=== PATIENT | female | born 1985 | race Two or more races ===

== ENCOUNTER 2017-11-10 15:13 | Emergency (ER) | payer BC ==
[2017-11-10] MEDS ORDERED: SODIUM CHLORIDE 0.9% 1,000 ML IV STA (15:49)
[2017-11-10] MEDS ORDERED: FAMOTIDINE 20 MG/2 ML VIAL IV STA (15:49)
[2017-11-10 16:15] LABS: Basophils % (A) 0 %; Eosinophils # (A) 0.1 k/uL (0-0.7); Eosinophils % (A) 1 %; HCT 38.8 % (34.0-46.0); HGB 13.2 gm/dL (11.4-16.0); Lymphocytes # (A) 1.4 k/uL (1.0-4.8); Lymphocytes % (A) 13 %; MCH 29.7 pg (25.0-35.0); MCV 87.1 fL (80.0-100.0); Mean Platelet Volume 9.7; Monocytes # (A) 0.3 k/uL (0-1.0); Monocytes % (A) 3 %; Neutrophils # (A) 8.9 k/uL (1.3-7.7); Neutrophils % (A) 82 %; Platelet Count 209 k/uL (150-450); RBC 4.45 m/uL (3.80-5.40); RDW 12.6 % (11.5-15.5); WBC 10.8 k/uL (3.8-10.6)
[2017-11-10 16:18] LABS: Appearance,Urine Clear (Clear); Bilirubin,Urine Negative (Negative); Blood,Urine Negative (Negative); Color,Urine Light Yellow; Glucose,Urine (UA) Negative (Negative); Ketones,Urine Negative (Negative); Leukocyte Esterase,Urine Negative (Negative); Nitrite,Urine Negative (Negative); Protein,Urine Negative (Negative); Specific Gravity,Urine 1.004 (1.001-1.035); Urobilinogen,Urine <2.0 mg/dL (<2.0)
[2017-11-10 16:27] LABS: ALT 52 U/L (9-52); AST 75 U/L (14-36); Albumin 4.2 g/dL (3.5-5.0); Alkaline Phosphatase 120 U/L (38-126); Amylase 93 U/L (30-110); Anion Gap 12 mmol/L; Blood Urea Nitrogen 10 mg/dL (7-17); Calcium 9.7 mg/dL (8.4-10.2); Carbon Dioxide 23 mmol/L (22-30); Chloride 102 mmol/L (98-107); Glucose 91 mg/dL (74-99); Lipase 88 U/L (23-300); Potassium 3.5 mmol/L (3.5-5.1); Sodium 137 mmol/L (137-145); Total Bilirubin 0.7 mg/dL (0.2-1.3); Total Protein 7.8 g/dL (6.3-8.2)
--- NOTE | 2017-11-10 16:36 | ED ---
Abdominal Pain HPI - General Chief Complaint: Abdominal Pain Stated Complaint: Abd pain Time Seen by Provider: 11/10/17 15:39 Source: patient, RN notes reviewed Mode of arrival: ambulatory Limitations: no limitations - History of Present Illness Initial Comments: This a 32-year-old female presents emergency department to complaint of abdominal pain. Patient states she's had on-and-off) epigastric pain for several years and told that is related to her gallbladder. She states she had PARTIALLY 5 YEARS AGO WHICH SHOWED SLUDGE. SHE STATES HER LAST COUPLE DAYS SHE' S HAD INCREASING PAIN IS WORSE WHEN SHE EATS. SHE STATES THAT SHE IS NOT HAVING ANY DIARRHEA SHE STATES SHE HAS SHE FEELS CONSTIPATED. PATIENT ALSO STATES THAT SHE IS CURRENTLY 10 WEEKS SCHEDULED SEE her SHELLS INSPECTOR later this month. She is A0 and having no current complications. Denies any lower abdominal pain denies any vaginal bleeding or vaginal discharge. Denies any dysuria no flank pain. - Related Data Home Medications Medication Instructions Recorded Confirmed Docusate [Colace] 100 mg PO DAILY PRN 11/10/17 11/10/17 Omeprazole 20 mg PO DAILY 11/10/17 11/10/17 Pnv No.95/Ferrous Fum/Folic AC 1 tab PO DAILY 11/10/17 11/10/17 [ Multivitamin Tablet] Allergies Allergy/AdvReac Type Severity Reaction Status Date / Time No Known Allergies Allergy Verified 11/10/17 15:59 Review of Systems ROS Statement: Those systems with pertinent positive or pertinent negative responses have been documented in the HPI. ROS Other: All systems not noted in ROS Statement are negative. Past Medical History Past Medical History: GERD/Reflux History of Any Multi-Drug Resistant Organisms: None Reported Past Surgical History: No Surgical Hx Reported Past Psychological History: No Psychological Hx Reported Smoking Status: Never smoker Past Alcohol Use History: None Reported Past Drug Use History: None Reported General Exam Limitations: no limitations General appearance: alert, in no apparent distress Respiratory exam: Present: normal lung sounds bilaterally. Absent: respiratory distress, wheezes, rales, rhonchi, stridor Cardiovascular Exam: Present: regular rate, normal rhythm, normal heart sounds. Absent: systolic murmur, diastolic murmur, rubs, gallop, clicks GI/Abdominal exam: Present: soft, tenderness (Mild tenderness right upper quadrant, epigastric region), normal bowel sounds. Absent: distended, guarding , rebound, rigid Back exam: Absent: CVA tenderness (R), CVA tenderness (L) Skin exam: Present: warm, dry, intact, normal color. Absent: rash Course Vital Signs 11/10/17 15:20 Temperature 98.2 F Pulse Rate 99 Respiratory 18 Rate Blood Pressure 129/85 O2 Sat by Pulse 100 Oximetry Medical Decision Making - Medical Decision Making 32-year-old female presents emergency department for reported abdominal pain. Patient's ultrasound does show multiple stones consistent with cholelithiasis. Patient's laboratory unremarkable. Patient has a normal viable IUP 11 weeks. Patient with follow-up with her SHELLS INSPECTOR. Patient was given on-call surgery was explained to her that she is Likely be any surgery at this time. Patient is advised to avoid any fatty foods - Lab Data Result diagrams: 11/10/17 16:04 11/10/17 16:04 Lab Results 11/10/17 11/10/17 11/10/17 Range/Units 16:04 16:04 16:04 WBC 10.8 H (3.8-10.6) k/uL RBC 4.45 (3.80-5.40) m/uL Hgb 13.2 (11.4-16.0) gm/dL Hct 38.8 (34.0-46.0) % MCV 87.1 (80.0-100.0) fL MCH 29.7 (25.0-35.0) pg MCHC 34.0 (31.0-37.0) g/dL RDW 12.6 (11.5-15.5) % Plt Count 209 (150-450) k/uL Neutrophils % 82 % Lymphocytes % 13 % Monocytes % 3 % Eosinophils % 1 % Basophils % 0 % Neutrophils # 8.9 H (1.3-7.7) k/uL Lymphocytes # 1.4 (1.0-4.8) k/uL Monocytes # 0.3 (0-1.0) k/uL Eosinophils # 0.1 (0-0.7) k/uL Basophils # 0.0 (0-0.2) k/uL Sodium 137 (137-145) mmol/L Potassium 3.5 (3.5-5.1) mmol/L Chloride 102 (98-107) mmol/L Carbon Dioxide 23 (22-30) mmol/L Anion Gap 12 mmol/L BUN 10 (7-17) mg/dL Creatinine 0.56 (0.52-1.04) mg/dL Est GFR (MDRD) Af Amer >60 (>60 ml/min/1.73 sqM) Est GFR (MDRD) Non-Af >60 (>60 ml/min/1.73 sqM) Glucose 91 (74-99) mg/dL Calcium 9.7 (8.4-10.2) mg/dL Total Bilirubin 0.7 (0.2-1.3) mg/dL AST 75 H (14-36) U/L ALT 52 (9-52) U/L Alkaline Phosphatase 120 (38-126) U/L Total Protein 7.8 (6.3-8.2) g/dL Albumin 4.2 (3.5-5.0) g/dL Amylase 93 (30-110) U/L Lipase 88 (23-300) U/L Urine Color Light Yellow Urine Appearance Clear (Clear) Urine pH 6.0 (5.0-8.0) Ur Specific [place] 1.004 (1.001-1.035) Urine Protein Negative (Negative) Urine Glucose (UA) Negative (Negative) Urine Ketones Negative (Negative) Urine Blood Negative (Negative) Urine Nitrite Negative (Negative) Urine Bilirubin Negative (Negative) Urine Urobilinogen <2.0 (<2.0) mg/dL Ur Leukocyte Esterase Negative (Negative) Disposition Clinical Impression: Cholelithiasis, Abdominal pain, Disposition: HOME SELF-CARE Condition: Stable Instructions: Gallstones (ED) Additional Instructions: Please return to the Emergency Department if symptoms worsen or any other concerns. Referrals: Luke Song MD [Primary Care Provider] - 1-2 days Jose David Castellano DO [Doctor of Osteopathic Medicine] - 1-2 days Time of Disposition: 17:22
--- NOTE | 2017-11-10 16:57 | US ---
EXAMINATION TYPE: US abdomen limited DATE OF EXAM: 11/10/2017 COMPARISON: NONE CLINICAL HISTORY: Epigastric Pain. EXAM MEASUREMENTS: Liver Length: 12.8 cm Gallbladder Wall: 0.2 cm CBD: 0.4 cm Right Kidney: 10.3 x 5.0 x 5.0 cm Pancreas: Obscured by bowel gas Liver: Somewhat coarse echotexture is present. Gallbladder: Multiple echogenic foci visualized, there is associated shadowing, no gallbladder wall thickening or pericholecystic fluid Evidence for sonographic Dominguez's sign: Yes CBD: wnl Right Kidney: No hydronephrosis or masses seen and cortical medullary differentiation is maintained No ascites IMPRESSION: There may be underlying hepatocellular disease, hepatic steatosis, there is cholelithiasi s. Limited exam.
--- NOTE | 2017-11-10 17:08 | US ---
EXAMINATION TYPE: US OB <= 14 wk fetus DATE OF EXAM: 11/10/2017 COMPARISON: NONE CLINICAL HISTORY: Pain. EXAM PERFORMED: Transabdominal (TA) EXAM MEASUREMENTS: GESTATIONAL AGE / DATING Physician Established: (10 weeks/4 days) EDC: 06/04/2018 Dates by LMP: (10 weeks/4 days) EDC: 06/04/2018 Dates by First Scan: No previous this is first scan Dates by Current Scan for: (11 weeks/0 days) EDC: 06/01/2018 MATERNAL ANATOMY Uterus: 11.1 x 7.4 x 7.3 cm Right Ovary: 3.4 x 2.9 x 2.6 cm Left Ovary: Not visualized on this exam Post CDS / Adnexa: wnl Presence of free fluid: No Presence of corpus luteal cyst: Yes, right ovary measuring 2.2 x 2.0 x 1.8 cm Presence of subchorionic bleed: No GESTATION / SURVEY CRL: 4.1 cm (11 weeks/0 days) Yolk Sac (normal less than 6mm): 4.5 mm Heart Rate: 165 bpm Rhythm: Normal IUP: Viable IUP Date of LMP: 08/28/2017 Beta HcG (if available): Not available at this time Viable IUP, measurements consistent with dates. Probable corpus luteal cyst visualized right ovary me asuring 2.2 x 2.0 x 1.8 cm IMPRESSION: Single viable intrauterine corresponding to ultrasound age of 11 weeks 0 days with estimate d date of delivery 06/01/2018, limited survey
[2017-11-10 17:41] LABS: HCG,Quantitative Serum 91189.2 mIU/mL
[2017-11-10 17:49] VITALS: BP 139/73; PULSE 105; RESP 20; TEMP 97.9
== END 2017-11-10 17:55 | disposition home or self-care (01) ==
LOC: EC 15:13
DX: O99.611 Diseases of the digestive system complicating pregnancy, first trimester (principal); K80.20 Calculus of gallbladder without cholecystitis without obstruction; K21.9 Gastro-esophageal reflux disease without esophagitis; Z3A.11 11 weeks gestation of pregnancy; Z79.899 Other long term (current) drug therapy
CPT/HCPCS: 36415; 76705; 76801; 80053; 81003; 82150; 83690; 84702; 85025; 96361; 96374; 99284

== ENCOUNTER 2017-11-11 17:29 | Inpatient (IN) | payer BC ==
[2017-11-11 18:52] LABS: Basophils % (A) 0 %; Eosinophils # (A) 0.1 k/uL (0-0.7); Eosinophils % (A) 1 %; HCT 38.7 % (34.0-46.0); HGB 12.9 gm/dL (11.4-16.0); Lymphocytes # (A) 1.2 k/uL (1.0-4.8); Lymphocytes % (A) 14 %; MCH 29.3 pg (25.0-35.0); MCHC 33.2 g/dL (31.0-37.0); MCV 88.4 fL (80.0-100.0); Mean Platelet Volume 9.6; Monocytes # (A) 0.3 k/uL (0-1.0); Monocytes % (A) 3 %; Neutrophils # (A) 6.9 k/uL (1.3-7.7); Neutrophils % (A) 81 %; Platelet Count 200 k/uL (150-450); RBC 4.39 m/uL (3.80-5.40); RDW 12.6 % (11.5-15.5); WBC 8.4 k/uL (3.8-10.6)
[2017-11-11 18:58] LABS: Appearance,Urine Clear (Clear); Bilirubin,Urine Negative (Negative); Blood,Urine Negative (Negative); Color,Urine Yellow; Glucose,Urine (UA) Negative (Negative); Ketones,Urine Negative (Negative); Nitrite,Urine Negative (Negative); Protein,Urine Negative (Negative); Specific Gravity,Urine 1.006 (1.001-1.035); Urobilinogen,Urine <2.0 mg/dL (<2.0)
[2017-11-11 18:59] LABS: Leukocyte Esterase,Urine Negative (Negative)
[2017-11-11 19:03] LABS: ALT 178 U/L (9-52); AST 186 U/L (14-36); Albumin 4.1 g/dL (3.5-5.0); Alkaline Phosphatase 192 U/L (38-126); Anion Gap 10 mmol/L; Blood Urea Nitrogen 8 mg/dL (7-17); Calcium 9.7 mg/dL (8.4-10.2); Carbon Dioxide 23 mmol/L (22-30); Chloride 104 mmol/L (98-107); Glucose 86 mg/dL (74-99); Potassium 3.8 mmol/L (3.5-5.1); Sodium 137 mmol/L (137-145); Total Bilirubin 2.3 mg/dL (0.2-1.3); Total Protein 7.9 g/dL (6.3-8.2)
--- NOTE | 2017-11-11 19:13 | ED ---
General Adult HPI - General Chief complaint: Abdominal Pain Stated complaint: Bladder pain/ 10 weeks Time Seen by Provider: 11/11/17 18:18 Source: patient, RN notes reviewed, old records reviewed Mode of arrival: ambulatory Limitations: no limitations - History of Present Illness Initial comments: 32-year-old female presenting with epigastric pain. Patient was seen in the emergency department yesterday for similar pain. She was noted to have stones at that time. She has history of gallstones. Pain is been present for the past 6 days. Denies fever. Has had some nausea associated with this as well. Pain is constant in nature at this time. She is currently 11 weeks . Denies any lower abdominal pain. Denies any vaginal bleeding or vaginal discharge. - Related Data Home Medications Medication Instructions Recorded Confirmed Docusate [Colace] 100 mg PO DAILY PRN 11/10/17 11/11/17 Omeprazole 20 mg PO DAILY 11/10/17 11/11/17 Pnv No.95/Ferrous Fum/Folic AC 1 tab PO DAILY 11/10/17 11/11/17 [ Multivitamin Tablet] Acetaminophen [Tylenol Extra 1,000 mg PO Q6H PRN 11/11/17 11/11/17 Strength] Calcium Carbonate [Tums] 500 mg PO TID PRN 11/11/17 11/11/17 Famotidine [Pepcid] 20 mg PO BID 11/11/17 11/11/17 Allergies Allergy/AdvReac Type Severity Reaction Status Date / Time No Known Allergies Allergy Verified 11/11/17 18:37 Review of Systems ROS Statement: Those systems with pertinent positive or pertinent negative responses have been documented in the HPI. ROS Other: All systems not noted in ROS Statement are negative. Past Medical History Past Medical History: GERD/Reflux History of Any Multi-Drug Resistant Organisms: None Reported Past Surgical History: No Surgical Hx Reported Past Psychological History: No Psychological Hx Reported Smoking Status: Never smoker Past Alcohol Use History: None Reported Past Drug Use History: None Reported General Exam Limitations: no limitations General appearance: alert, in no apparent distress Head exam: Present: atraumatic, normocephalic Eye exam: Present: normal appearance, PERRL ENT exam: Present: normal exam Neck exam: Present: normal inspection. Absent: tenderness, meningismus Respiratory exam: Present: normal lung sounds bilaterally. Absent: respiratory distress, wheezes Cardiovascular Exam: Present: regular rate, normal rhythm GI/Abdominal exam: Present: soft, tenderness (Mild epigastric tenderness palpation.). Absent: distended Extremities exam: Present: normal inspection, normal capillary refill. Absent: pedal edema Back exam: Present: normal inspection, full ROM Neurological exam: Present: alert, oriented X3, CN II-XII intact. Absent: motor sensory deficit Psychiatric exam: Present: normal affect, normal mood Skin exam: Present: warm, dry, intact. Absent: cyanosis, diaphoretic Course Vital Signs 11/11/17 11/11/17 17:33 19:52 Temperature 98.0 F Pulse Rate 85 72 Respiratory 20 18 Rate Blood Pressure 123/85 118/82 O2 Sat by Pulse 99 100 Oximetry Medical Decision Making - Medical Decision Making 32-year-old female presenting with epigastric and right upper quadrant pain. Patient's had this pain for approximately one week. She is currently 11 weeks . . No lower abdominal pain, no vaginal bleeding. Patient has not yet followed with NEGATIVE RETOUCHER. Laboratory studies reveal elevated serum lipase 11,900 from 88 yesterday, amylase elevated 638, total bili 2.3, AST ALT and alk phos are also mildly elevated. Ultrasound shows mild gallbladder wall thickening, positive Dominguez sign. Common bile duct within normal limits, there is cholelithiasis present. Patient will be admitted, case discussed with Dr. Snell, he accepts admission, GI will be placed on consult. Diagnosis: Gallstone pancreatitis - Lab Data Result diagrams: 11/11/17 18:39 11/11/17 18:39 Lab Results 11/11/17 11/11/17 11/11/17 Range/Units 18:39 18:39 18:39 WBC 8.4 (3.8-10.6) k/uL RBC 4.39 (3.80-5.40) m/uL Hgb 12.9 (11.4-16.0) gm/dL Hct 38.7 (34.0-46.0) % MCV 88.4 (80.0-100.0) fL MCH 29.3 (25.0-35.0) pg MCHC 33.2 (31.0-37.0) g/dL RDW 12.6 (11.5-15.5) % Plt Count 200 (150-450) k/uL Neutrophils % 81 % Lymphocytes % 14 % Monocytes % 3 % Eosinophils % 1 % Basophils % 0 % Neutrophils # 6.9 (1.3-7.7) k/uL Lymphocytes # 1.2 (1.0-4.8) k/uL Monocytes # 0.3 (0-1.0) k/uL Eosinophils # 0.1 (0-0.7) k/uL Basophils # 0.0 (0-0.2) k/uL PT (9.0-12.0) sec INR (<1.2) APTT (22.0-30.0) sec Sodium 137 (137-145) mmol/L Potassium 3.8 (3.5-5.1) mmol/L Chloride 104 (98-107) mmol/L Carbon Dioxide 23 (22-30) mmol/L Anion Gap 10 mmol/L BUN 8 (7-17) mg/dL Creatinine 0.60 (0.52-1.04) mg/dL Est GFR (MDRD) Af Amer >60 (>60 ml/min/1.73 sqM) Est GFR (MDRD) Non-Af >60 (>60 ml/min/1.73 sqM) Glucose 86 (74-99) mg/dL Plasma Lactic Acid [place] 0.9 (0.7-2.0) mmol/L Calcium 9.7 (8.4-10.2) mg/dL Total Bilirubin 2.3 H (0.2-1.3) mg/dL AST 186 H (14-36) U/L ALT 178 H (9-52) U/L Alkaline Phosphatase 192 H (38-126) U/L Total Protein 7.9 (6.3-8.2) g/dL Albumin 4.1 (3.5-5.0) g/dL Amylase 638 H* (30-110) U/L Lipase 15961 H (23-300) U/L Urine Color Urine Appearance (Clear) Urine pH (5.0-8.0) Ur Specific [place] (1.001-1.035) Urine Protein (Negative) Urine Glucose (UA) (Negative) Urine Ketones (Negative) Urine Blood (Negative) Urine Nitrite (Negative) Urine Bilirubin (Negative) Urine Urobilinogen (<2.0) mg/dL Ur Leukocyte Esterase (Negative) Urine HCG, Qual (Not Detectd) Blood Type Blood Type Recheck Antibody Screen Spec Expiration Date 11/11/17 11/11/17 11/11/17 Range/Units 18:39 18:39 18:39 WBC (3.8-10.6) k/uL RBC (3.80-5.40) m/uL Hgb (11.4-16.0) gm/dL Hct (34.0-46.0) % MCV (80.0-100.0) fL MCH (25.0-35.0) pg MCHC (31.0-37.0) g/dL RDW (11.5-15.5) % Plt Count (150-450) k/uL Neutrophils % % Lymphocytes % % Monocytes % % Eosinophils % % Basophils % % Neutrophils # (1.3-7.7) k/uL Lymphocytes # (1.0-4.8) k/uL Monocytes # (0-1.0) k/uL Eosinophils # (0-0.7) k/uL Basophils # (0-0.2) k/uL PT 10.0 (9.0-12.0) sec INR 1.0 (<1.2) APTT 24.0 (22.0-30.0) sec Sodium (137-145) mmol/L Potassium (3.5-5.1) mmol/L Chloride (98-107) mmol/L Carbon Dioxide (22-30) mmol/L Anion Gap mmol/L BUN (7-17) mg/dL Creatinine (0.52-1.04) mg/dL Est GFR (MDRD) Af Amer (>60 ml/min/1.73 sqM) Est GFR (MDRD) Non-Af (>60 ml/min/1.73 sqM) Glucose (74-99) mg/dL Plasma Lactic Acid [place] (0.7-2.0) mmol/L Calcium (8.4-10.2) mg/dL Total Bilirubin (0.2-1.3) mg/dL AST (14-36) U/L ALT (9-52) U/L Alkaline Phosphatase (38-126) U/L Total Protein (6.3-8.2) g/dL Albumin (3.5-5.0) g/dL Amylase (30-110) U/L Lipase (23-300) U/L Urine Color Yellow Urine Appearance Clear (Clear) Urine pH 5.0 (5.0-8.0) Ur Specific [place] 1.006 (1.001-1.035) Urine Protein Negative (Negative) Urine Glucose (UA) Negative (Negative) Urine Ketones Negative (Negative) Urine Blood Negative (Negative) Urine Nitrite Negative (Negative) Urine Bilirubin Negative (Negative) Urine Urobilinogen <2.0 (<2.0) mg/dL Ur Leukocyte Esterase Negative (Negative) Urine HCG, Qual (Not Detectd) Blood Type O Positive Blood Type Recheck No Antibody Screen NEGATIVE Spec Expiration Date 11/14/2017 - 233811/11/17 Range/Units 18:39 WBC (3.8-10.6) k/uL RBC (3.80-5.40) m/uL Hgb (11.4-16.0) gm/dL Hct (34.0-46.0) % MCV (80.0-100.0) fL MCH (25.0-35.0) pg MCHC (31.0-37.0) g/dL RDW (11.5-15.5) % Plt Count (150-450) k/uL Neutrophils % % Lymphocytes % % Monocytes % % Eosinophils % % Basophils % % Neutrophils # (1.3-7.7) k/uL Lymphocytes # (1.0-4.8) k/uL Monocytes # (0-1.0) k/uL Eosinophils # (0-0.7) k/uL Basophils # (0-0.2) k/uL PT (9.0-12.0) sec INR (<1.2) APTT (22.0-30.0) sec Sodium (137-145) mmol/L Potassium (3.5-5.1) mmol/L Chloride (98-107) mmol/L Carbon Dioxide (22-30) mmol/L Anion Gap mmol/L BUN (7-17) mg/dL Creatinine (0.52-1.04) mg/dL Est GFR (MDRD) Af Amer (>60 ml/min/1.73 sqM) Est GFR (MDRD) Non-Af (>60 ml/min/1.73 sqM) Glucose (74-99) mg/dL Plasma Lactic Acid [place] (0.7-2.0) mmol/L Calcium (8.4-10.2) mg/dL Total Bilirubin (0.2-1.3) mg/dL AST (14-36) U/L ALT (9-52) U/L Alkaline Phosphatase (38-126) U/L Total Protein (6.3-8.2) g/dL Albumin (3.5-5.0) g/dL Amylase (30-110) U/L Lipase (23-300) U/L Urine Color Urine Appearance (Clear) Urine pH (5.0-8.0) Ur Specific [place] (1.001-1.035) Urine Protein (Negative) Urine Glucose (UA) (Negative) Urine Ketones (Negative) Urine Blood (Negative) Urine Nitrite (Negative) Urine Bilirubin (Negative) Urine Urobilinogen (<2.0) mg/dL Ur Leukocyte Esterase (Negative) Urine HCG, Qual Detected (Not Detectd) Blood Type Blood Type Recheck Antibody Screen Spec Expiration Date Disposition Clinical Impression: Gallstone pancreatitis Disposition: ADMITTED IP TO THIS [facility] Condition: Stable Referrals: Luke Song MD [Primary Care Provider] - 1-2 days Decision to Admit Reason: Admit from EC Decision Date: 11/11/17 Decision Time: 20:54
[2017-11-11 19:18] LABS: Amylase 638 U/L (30-110)
[2017-11-11 19:33] LABS: Lipase 11900 U/L (23-300)
--- NOTE | 2017-11-11 19:36 | US ---
EXAMINATION TYPE: US gallbladder DATE OF EXAM: 11/11/2017 COMPARISON: US 11/10/2017 CLINICAL HISTORY: Pain. EXAM MEASUREMENTS: Liver Length: 12.4 cm Gallbladder Wall: 0.29 cm CBD: 0.5 cm Right Kidney: 10.4 x 4.7 x 4.4 cm there is a hypodense focus within the interpolar cortex of the rig ht kidney which measures 1.3 cm, this could be a cyst. Pancreas: Obscured by bowel gas Liver: Somewhat coarsened echotexture unchanged. Gallbladder: Multiple echogenic foci visualized. These layer dependently within the lumen of the gal lbladder. Gallbladder wall is borderline thickened however there is no pericholecystic fluid and the common duct is within normal limits. Evidence for sonographic Dominguez's sign: Yes CBD: wnl as visualized, distal portion is obscured by bowel gas Right Kidney: No hydronephrosis or masses seen IMPRESSION: Cholelithiasis is again noted. There is clinical concern for acute cholecystitis HIDA sca n could be obtained.
[2017-11-11] MEDS ORDERED: HYDROmorphone 2 MG/ML 1 ML SYRINGE IVP PRN (20:47)
[2017-11-11] MEDS ORDERED: ONDANSETRON 4 MG/2 ML VIAL IVP PRN (20:47)
[2017-11-11] MEDS ORDERED: NALOXONE 0.4 MG/ML 1 ML VIAL IV PRN (20:47)
[2017-11-11] MEDS: DEXTROSE 5%-0.45% NACL 1,000 ML IV SCH (21:20)
[2017-11-11 21:58] VITALS: BMI 37.9
[2017-11-11] MEDS: ACETAMINOPHEN IV (For NPO) 1,000 MG in EMPTY BAG 1 BAG IVPB SCH (23:23)
[2017-11-12] MEDS: ACETAMINOPHEN IV (For NPO) 1,000 MG in EMPTY BAG 1 BAG IVPB SCH ×3 (05:19→17:25)
[2017-11-12 07:54] LABS: Albumin 3.4 g/dL (3.5-5.0); Amylase 298 U/L (30-110); Anion Gap 8 mmol/L; Calcium 9.1 mg/dL (8.4-10.2); Carbon Dioxide 23 mmol/L (22-30); Chloride 107 mmol/L (98-107); Glucose 95 mg/dL (74-99); Lipase 1058 U/L (23-300); Sodium 138 mmol/L (137-145); Total Bilirubin 0.8 mg/dL (0.2-1.3); Total Protein 6.6 g/dL (6.3-8.2)
[2017-11-12 07:59] LABS: ALT 166 U/L (9-52); AST 150 U/L (14-36); Alkaline Phosphatase 174 U/L (38-126); Blood Urea Nitrogen 6 mg/dL (7-17); Potassium 4.2 mmol/L (3.5-5.1)
[2017-11-12 08:02] LABS: Basophils % (A) 0 %; Eosinophils # (A) 0.1 k/uL (0-0.7); Eosinophils % (A) 1 %; HCT 35.9 % (34.0-46.0); HGB 11.8 gm/dL (11.4-16.0); Lymphocytes # (A) 1.5 k/uL (1.0-4.8); Lymphocytes % (A) 22 %; MCH 29.5 pg (25.0-35.0); MCHC 32.9 g/dL (31.0-37.0); MCV 89.8 fL (80.0-100.0); Mean Platelet Volume 9.9; Monocytes # (A) 0.3 k/uL (0-1.0); Monocytes % (A) 4 %; Neutrophils # (A) 4.9 k/uL (1.3-7.7); Neutrophils % (A) 71 %; Platelet Count 182 k/uL (150-450); RDW 12.9 % (11.5-15.5); WBC 6.9 k/uL (3.8-10.6)
[2017-11-12] MEDS: DEXTROSE 5%-0.45% NACL 1,000 ML IV SCH ×2 (08:58→17:24)
--- NOTE | 2017-11-12 09:58 | CONS ---
CONSULTATION DATE OF CONSULTATION: 11/12/17 REQUESTING PHYSICIAN: Dr. Snell. REASON FOR CONSULTATION: Acute gallstone pancreatitis. HISTORY OF PRESENT ILLNESS: The patient is a 32-year-old pleasant white female admitted to the hospital with epigastric pain for the last 6 days duration. She had a similar episode that lasted for 2 or 3 hours about a year ago and was diagnosed with gallbladder sludge at that time. However, this time the pain has been constant, severe in the epigastric area associated with some nausea but no emesis. The pain continued to progressively get worse. She is presently 10 weeks . She went to the emergency room on November 10 and was discharged home and then she came back yesterday with worsening symptoms and admitted to the hospital for further evaluation. She was noted to have acute elevation of amylase and lipase consistent with pancreatitis. Amylase was 638 and lipase was 11,900. This morning she is feeling better. Abdominal pain has improved. No further episodes of nausea, vomiting. No fever, chills, night sweats. PAST MEDICAL HISTORY: Unremarkable. Past surgical history unremarkable. MEDICATIONS: At home, vitamins, omeprazole, Colace, extra-strength Tylenol. ALLERGIES: No known drug allergies. SOCIAL HISTORY: No smoking, alcohol use. FAMILY HISTORY: Unremarkable. REVIEW OF SYSTEMS: Cardiopulmonary: No chest pain, shortness of breath. Musculoskeletal: Unremarkable. ENT: Vision unremarkable. SKIN: Unremarkable. Psychiatric: Unremarkable. Neurological: Unremarkable. Constitutional: No recent weight loss. No fever, chills, night sweats. PHYSICAL EXAMINATION: She appears comfortable. No apparent distress. VITAL SIGNS: Stable. Blood pressure is 126/85, pulse 86, temperature 97.4. HEENT examination unremarkable. Conjunctivae pink. Sclerae anicteric. Oral cavity no lesions. Neck: No jugular venous distention or lymph node enlargement. Chest was clear to auscultation. HEART: Regular rate and rhythm. ABDOMEN: Soft. Mild tenderness in the epigastric area. Bowel sounds are positive. No organomegaly. Extremities no pedal edema. Skin no rashes. NEUROLOGIC: Alert and oriented x3. No focal deficits. LAB: WBC 6.9, hemoglobin 11.8, platelets are normal. AST was 186, ALT 178, T-bilirubin 2.3, and alkaline phosphatase 192. Today, T-bilirubin is down to 0.8. AST is down to 150, ALT is down to 166, alkaline phosphatase is 174. Amylase was 638 yesterday and today is 298, lipase was 11,900 and today is 1058. Ultrasound showed multiple gallstones and no biliary ductal dilation. IMPRESSION: 1. Acute gallstone pancreatitis in this patient who presents with epigastric discomfort for the last 6 days duration noted to have elevated amylase and lipase as well as elevated LFTs and bilirubin up to 2.3. This morning her labs have significantly improved indicating most likely that she had passed the CBD stone spontaneously. Clinically, she has much less symptoms today. 2. 10 weeks gestation. RECOMMENDATIONS: I had a lengthy discussion with the patient regarding management of acute gallstone pancreatitis. Since serum transaminases are improving and total bilirubin has normalized, she does not need to have any endoscopy intervention with ERCP at the present time. We will await for recommendations from Dr. Snell who has been consulted for gallstones. In the meantime, we will start her on a clear liquid diet. Continue with symptomatic and supportive care and follow her closely during her hospital stay. Thank you for this consultation. MMKAISERL / IJN: [id number] /
--- NOTE | 2017-11-12 12:11 | P.GSHP ---
History of Present Illness H&P Date: 11/12/17 Chief Complaint: Gallstone pancreatitis Patient presents to the hospital with increased epigastric abdominal pain. She has had episodes like this dating back for at least 1 year. She has a history of known gallbladder issues. She was in the ER 2 days ago discharged home and then came back to the ER yesterday. She is found have elevation of amylase lipase and liver enzymes. Ultrasound showed a normal common bile duct, thickened wall, multiple stones. Her pain is improved today. Her enzymes are improved today. She was seen by GI who was suggesting cholecystectomy in the near future to prevent future episodes. The patient is 11 weeks . - Review of Systems Comment: The patient denies any acute changes in vision or hearing, no dysphagia or odynophagia, no chest pain or shortness of breath, no dysuria or hematuria, no headache, no runny nose, no rectal bleeding or melena, no unexplained weight loss Past Medical History Past Medical History: GERD/Reflux History of Any Multi-Drug Resistant Organisms: None Reported Past Surgical History: No Surgical Hx Reported Past Psychological History: No Psychological Hx Reported Smoking Status: Never smoker Past Alcohol Use History: None Reported Past Drug Use History: None Reported Medications and Allergies Home Medications Medication Instructions Recorded Confirmed Type Docusate [Colace] 100 mg PO DAILY PRN 11/10/17 11/11/17 History Omeprazole 20 mg PO DAILY 11/10/17 11/11/17 History Pnv No.95/Ferrous Fum/Folic AC 1 tab PO DAILY 11/10/17 11/11/17 History [ Multivitamin Tablet] Acetaminophen [Tylenol Extra 1,000 mg PO Q6H PRN 11/11/17 11/11/17 History Strength] Calcium Carbonate [Tums] 500 mg PO TID PRN 11/11/17 11/11/17 History Famotidine [Pepcid] 20 mg PO BID 11/11/17 11/11/17 History Allergies Allergy/AdvReac Type Severity Reaction Status Date / Time No Known Allergies Allergy Verified 11/11/17 18:37 Surgical - Exam Vital Signs Temp Pulse Resp BP Pulse Ox 98.0 F 85 20 123/85 99 11/11/17 17:33 11/11/17 17:33 11/11/17 17:33 11/11/17 17:33 11/11/17 17:33 Physical exam: General: Well-developed, well-nourished HEENT: Normocephalic, sclerae nonicteric Abdomen: Mild epigastric tenderness, nondistended Extremities: No edema Neuro: Alert and oriented Results - Labs 11/12/17 07:11 11/12/17 07:11 Abnormal Lab Results - Last 24 Hours (Table) 11/11/17 11/12/17 Range/Units 18:39 07:11 BUN 6 L (7-17) mg/dL Creatinine 0.51 L (0.52-1.04) mg/dL Total Bilirubin 2.3 H (0.2-1.3) mg/dL AST 186 H 150 H (14-36) U/L ALT 178 H 166 H (9-52) U/L Alkaline Phosphatase 192 H 174 H (38-126) U/L Albumin 3.4 L (3.5-5.0) g/dL Amylase 638 H* 298 H (30-110) U/L Lipase 24251 H 1058 H (23-300) U/L Diabetes panel 11/11/17 11/12/17 Range/Units 18:39 07:11 Sodium 137 138 (137-145) mmol/L Potassium 3.8 4.2 (3.5-5.1) mmol/L Chloride 104 107 (98-107) mmol/L Carbon Dioxide 23 23 (22-30) mmol/L BUN 8 6 L (7-17) mg/dL Creatinine 0.60 0.51 L (0.52-1.04) mg/dL Glucose 86 95 (74-99) mg/dL Calcium 9.7 9.1 (8.4-10.2) mg/dL AST 186 H 150 H (14-36) U/L ALT 178 H 166 H (9-52) U/L Alkaline Phosphatase 192 H 174 H (38-126) U/L Total Protein 7.9 6.6 (6.3-8.2) g/dL Albumin 4.1 3.4 L (3.5-5.0) g/dL Calcium panel 11/11/17 11/12/17 Range/Units 18:39 07:11 Calcium 9.7 9.1 (8.4-10.2) mg/dL Albumin 4.1 3.4 L (3.5-5.0) g/dL Pituitary panel 11/11/17 11/12/17 Range/Units 18:39 07:11 Sodium 137 138 (137-145) mmol/L Potassium 3.8 4.2 (3.5-5.1) mmol/L Chloride 104 107 (98-107) mmol/L Carbon Dioxide 23 23 (22-30) mmol/L BUN 8 6 L (7-17) mg/dL Creatinine 0.60 0.51 L (0.52-1.04) mg/dL Glucose 86 95 (74-99) mg/dL Calcium 9.7 9.1 (8.4-10.2) mg/dL Adrenal panel 11/11/17 11/12/17 Range/Units 18:39 07:11 Sodium 137 138 (137-145) mmol/L Potassium 3.8 4.2 (3.5-5.1) mmol/L Chloride 104 107 (98-107) mmol/L Carbon Dioxide 23 23 (22-30) mmol/L BUN 8 6 L (7-17) mg/dL Creatinine 0.60 0.51 L (0.52-1.04) mg/dL Glucose 86 95 (74-99) mg/dL Calcium 9.7 9.1 (8.4-10.2) mg/dL Total Bilirubin 2.3 H 0.8 (0.2-1.3) mg/dL AST 186 H 150 H (14-36) U/L ALT 178 H 166 H (9-52) U/L Alkaline Phosphatase 192 H 174 H (38-126) U/L Total Protein 7.9 6.6 (6.3-8.2) g/dL Albumin 4.1 3.4 L (3.5-5.0) g/dL Assessment and Plan (1) Gallstone pancreatitis Narrative/Plan: The clinical scenario discussed in detail with the patient and also her . We'll consult OB to evaluate and give us their opinion regarding appropriate timing of surgery. The patient is at risk of recurrent episodes of gallstone pancreatitis without surgery however. Will repeat labs tomorrow. Begin clear liquids at this time. Current Visit: Yes Status: Acute Code(s): K85.10 - BILIARY ACUTE PANCREATITIS WITHOUT NECROSIS OR INFECTION SNOMED Code(s): 86795249
--- NOTE | 2017-11-12 16:51 | P.OBCN ---
History of Present Illness Consult date: 11/12/17 Reason for consult: other (Cholecystitis and early ) Chief complaint: RUQ pain History of present illness: This is a 32-year-old 1 para 0 at 10 weeks 6/7 days that presents to the hospital with complaints of right upper quadrant pain. Patient's due date is 06/04/2018 based on a last menstrual period of 10:30 consistent with a 10 week ultrasound done here in the hospital on November 10. Patient has been struggling over the weekend with increased "gallbladder attacks". She states anything she eats causes discomfort in the mid epigastric/right upper quadrant pain. She was seen in the hospital on November 10 and was discharged home. She reports presented yesterday with continued complaints of right upper quadrant and mid epigastric pain. She was then admitted to the hospital and consultation was requested. Gen. surgery is considering cholecystectomy at this time. Review of Systems Constitutional: Reports fatigue, Denies fever Respiratory: Denies cough Gastrointestinal: Reports belching, Reports nausea, Denies constipation, Denies diarrhea, Denies vomiting Genitourinary: Reports Past Medical History Past Medical History: GERD/Reflux History of Any Multi-Drug Resistant Organisms: None Reported Past Surgical History: No Surgical Hx Reported Past Psychological History: No Psychological Hx Reported Smoking Status: Never smoker Past Alcohol Use History: None Reported Past Drug Use History: None Reported Medications and Allergies Home Medications Medication Instructions Recorded Confirmed Type Docusate [Colace] 100 mg PO DAILY PRN 11/10/17 11/11/17 History Omeprazole 20 mg PO DAILY 11/10/17 11/11/17 History Pnv No.95/Ferrous Fum/Folic AC 1 tab PO DAILY 11/10/17 11/11/17 History [ Multivitamin Tablet] Acetaminophen [Tylenol Extra 1,000 mg PO Q6H PRN 11/11/17 11/11/17 History Strength] Calcium Carbonate [Tums] 500 mg PO TID PRN 11/11/17 11/11/17 History Famotidine [Pepcid] 20 mg PO BID 11/11/17 11/11/17 History Allergies Allergy/AdvReac Type Severity Reaction Status Date / Time No Known Allergies Allergy Verified 11/11/17 18:37 Exam Osteopathic Statement: *. No significant issues noted on an osteopathic structural exam other than those noted in the History and Physical/Consult. - Vital Signs Vital signs: Vital Signs Temp Pulse Pulse Resp BP BP Pulse Ox 11/12/17 07:09 16 11/12/17 07:08 98.6 F 67 16 98/66 99 11/12/17 01:00 98.0 F 82 16 105/67 100 11/11/17 21:20 98.2 F 80 18 133/72 98 11/11/17 21:14 97.4 F L 86 16 126/85 98 11/11/17 19:52 72 18 118/82 100 11/11/17 17:33 98.0 F 85 20 123/85 99 Intake and Output 11/12/17 11/12/17 11/12/17 06:59 14:59 22:59 Intake Total 800 Balance 800 Intake: Intake, IV Titration 800 Amount Dextrose 5%-0.45% NaCl 1, 800 000 ml @ 100 mls/hr IV . Q10H TOMY Rx#:[id number] Other: Voiding Method Toilet # Voids 3 1 - OBG Physical Exam Uterus: enlarged Results Result Diagrams: 11/12/17 07:11 11/12/17 07:11 Abnormal Lab Results - Last 24 Hours (Table) 11/11/17 11/12/17 Range/Units 18:39 07:11 BUN 6 L (7-17) mg/dL Creatinine 0.51 L (0.52-1.04) mg/dL Total Bilirubin 2.3 H (0.2-1.3) mg/dL AST 186 H 150 H (14-36) U/L ALT 178 H 166 H (9-52) U/L Alkaline Phosphatase 192 H 174 H (38-126) U/L Albumin 3.4 L (3.5-5.0) g/dL Amylase 638 H* 298 H (30-110) U/L Lipase 94059 H 1058 H (23-300) U/L Assessment and Plan (1) Gallstone pancreatitis Narrative/Plan: Given her lab abnormalities and clinical scenario with increasing pain anytime she ingests food, surgery is indicated and I agree that it should be done at this time. Ideally we would like to wait the second trimester but given her lab elevations and increasing discomfort I do not believe she would be able to tolerate this waiting period.. I think that if she is discharged home she will continue to come back to the emergency department with complaints of pain and will be admitted once again. I did discuss this with the patient and her at the bedside today. I would like a ultrasound after surgery is complete just to confirm heart tones, secondary to gestational age as we are unable to get them via bedside Doppler. She is very concerned about her vitamin which she has not taken since November 10 she can resume this after surgery is complete. Thank you for your consult if you have any further questions regarding the care of Pepper, please don't hesitate to ask. Current Visit: Yes Status: Acute Code(s): K85.10 - BILIARY ACUTE PANCREATITIS WITHOUT NECROSIS OR INFECTION SNOMED Code(s): 54497875 (2) Abdominal pain Current Visit: No Status: Acute Code(s): R10.9 - UNSPECIFIED ABDOMINAL PAIN SNOMED Code(s): 55896423 (3) Cholelithiasis Current Visit: No Status: Acute Code(s): K80.20 - CALCULUS OF GALLBLADDER W/ O CHOLECYSTITIS W/O OBSTRUCTION SNOMED Code(s): 763211685 (4) Current Visit: No Status: Acute Code(s): Z34.90 - ENCNTR FOR SUPRVSN OF NORMAL , UNSP, UNSP TRIMESTER SNOMED Code(s): 02313661
[2017-11-13] MEDS: DEXTROSE 5%-0.45% NACL 1,000 ML IV SCH ×2 (04:44→13:00)
[2017-11-13 07:11] LABS: Basophils % (A) 0 %; Eosinophils # (A) 0.1 k/uL (0-0.7); Eosinophils % (A) 1 %; HGB 11.8 gm/dL (11.4-16.0); Lymphocytes # (A) 1.6 k/uL (1.0-4.8); Lymphocytes % (A) 26 %; MCH 29.5 pg (25.0-35.0); MCHC 32.8 g/dL (31.0-37.0); MCV 89.9 fL (80.0-100.0); Mean Platelet Volume 9.7; Monocytes # (A) 0.3 k/uL (0-1.0); Monocytes % (A) 5 %; Neutrophils # (A) 3.9 k/uL (1.3-7.7); Neutrophils % (A) 66 %; Platelet Count 167 k/uL (150-450); RDW 12.7 % (11.5-15.5)
[2017-11-13 07:47] LABS: ALT 121 U/L (9-52); AST 59 U/L (14-36); Albumin 3.3 g/dL (3.5-5.0); Alkaline Phosphatase 154 U/L (38-126); Anion Gap 6 mmol/L; Blood Urea Nitrogen 3 mg/dL (7-17); Carbon Dioxide 24 mmol/L (22-30); Chloride 108 mmol/L (98-107); Glucose 103 mg/dL (74-99); Potassium 3.8 mmol/L (3.5-5.1); Sodium 138 mmol/L (137-145); Total Bilirubin 0.5 mg/dL (0.2-1.3); Total Protein 6.4 g/dL (6.3-8.2)
--- NOTE | 2017-11-13 08:10 | P.PN ---
Subjective Progress Note Date: 11/13/17 Principal diagnosis: IUP @ 11 0/7 weeks, cholelithiasis, gallstone pancreatitis The patient did well overnight. She denies any abdominal pain. She denies needing to take anything for discomfort over the evening. Her only complaint this morning is constipation. Objective - Vital Signs Vital signs: Vital Signs Temp 97.8 F 11/13/17 07:00 Pulse 84 11/13/17 07:00 Resp 16 11/13/17 07:00 BP 103/69 11/13/17 07:00 Pulse Ox 99 11/13/17 07:00 Intake & Output 11/12/17 11/13/17 11/13/17 18:59 06:59 18:59 Intake Total 1800 Balance 1800 Intake: Intake, IV Titration 800 Amount Dextrose 5%-0.45% NaCl 1, 800 000 ml @ 100 mls/hr IV . Q10H TOMY Rx#:[id number] Oral 1000 Other: Voiding Method Toilet Toilet # Voids 1 3 - Constitutional General appearance: Present: cooperative, no acute distress - Gastrointestinal General gastrointestinal: Present: normal bowel sounds - Labs CBC & Chem 7: 11/13/17 06:47 11/13/17 06:47 Labs: Abnormal Lab Results - Last 24 Hours (Table) 11/13/17 Range/Units 06:47 Chloride 108 H (98-107) mmol/L BUN 3 L (7-17) mg/dL Creatinine 0.49 L (0.52-1.04) mg/dL Glucose 103 H (74-99) mg/dL AST 59 H (14-36) U/L ALT 121 H (9-52) U/L Alkaline Phosphatase 154 H (38-126) U/L Albumin 3.3 L (3.5-5.0) g/dL Assessment and Plan (1) Gallstone pancreatitis Current Visit: Yes Status: Acute Code(s): K85.10 - BILIARY ACUTE PANCREATITIS WITHOUT NECROSIS OR INFECTION SNOMED Code(s): 37641780 (2) Abdominal pain Current Visit: No Status: Acute Code(s): R10.9 - UNSPECIFIED ABDOMINAL PAIN SNOMED Code(s): 03882307 (3) Cholelithiasis Narrative/Plan: Awaiting surgical opinion this morning. Patient's labs are continuing to improve this morning given her clear liquid diet, IV fluids. She is denying discomfort. I am in hopes that they will proceed with cholecystectomy. In regards to her constipation I will order stool softeners and a suppository if needed. Current Visit: No Status: Acute Code(s): K80.20 - CALCULUS OF GALLBLADDER W/ O CHOLECYSTITIS W/O OBSTRUCTION SNOMED Code(s): 339628422 (4) Current Visit: No Status: Acute Code(s): Z34.90 - ENCNTR FOR SUPRVSN OF NORMAL , UNSP, UNSP TRIMESTER SNOMED Code(s): 60730712
[2017-11-13] MEDS ORDERED: BISACODYL 10 MG SUPP RECTAL STA (08:13)
[2017-11-13] MEDS ORDERED: SENNOSIDES-DOCUSATE SODIUM 1 EACH TAB PO STA ×2 (08:14→08:25)
--- NOTE | 2017-11-13 11:57 | P.PN ---
<Leora Uribe Jose Manuel - Last Filed: 11/13/17 11:55> Subjective Progress Note Date: 11/13/17 32-year-old female sitting up in bed states the epigastric discomfort has resolved. States no bowel movement passing gas SENIOR COGNOS DEVELOPER participating in the care indicate from their perspective okay to proceed with cholecystectomy for gallstone pancreatitis given patient is an increased risk for reoccurring episodes. Objective - Vital Signs Vital signs: Vital Signs Temp 97.8 F 11/13/17 07:00 Pulse 84 11/13/17 07:00 Resp 16 11/13/17 07:00 BP 103/69 11/13/17 07:00 Pulse Ox 99 11/13/17 07:00 Intake & Output 11/12/17 11/13/17 11/13/17 18:59 06:59 18:59 Intake Total 1800 Balance 1800 Weight 97.069 kg Intake: Intake, IV Titration 800 Amount Dextrose 5%-0.45% NaCl 1, 800 000 ml @ 100 mls/hr IV . Q10H TOMY Rx#:[id number] Oral 1000 Other: Voiding Method Toilet Toilet # Voids 1 3 - Exam Physical exam Pleasant 3o female sitting up in bed states epigastric discomfort has resolved currently nothing by mouth Lungs adequate air movement bilaterally no shortness of breath Heart S1-S2 audible regular Abdomen soft not distended reports no nausea vomiting states passing gas no stool no nausea no vomiting states epigastric discomfort resolved Extremities no edema - Labs CBC & Chem 7: 11/13/17 06:47 11/13/17 06:47 Labs: Abnormal Lab Results - Last 24 Hours (Table) 11/13/17 Range/Units 06:47 Chloride 108 H (98-107) mmol/L BUN 3 L (7-17) mg/dL Creatinine 0.49 L (0.52-1.04) mg/dL Glucose 103 H (74-99) mg/dL AST 59 H (14-36) U/L ALT 121 H (9-52) U/L Alkaline Phosphatase 154 H (38-126) U/L Albumin 3.3 L (3.5-5.0) g/dL Assessment and Plan Assessment: Impression Present on admission epigastric pain likely due to gallstone pancreatitis Present on admission unspecified abdominal pain Present on admission cholelithiasis IUP estimated 11 weeks Plan IV fluid hydration Appreciate and will Continue recommendations by SENIOR COGNOS DEVELOPER Further surgical recommendations pending Pain control The timing of the lap cholecystectomy to be determined The above impression and plan of care have been discussed and directed by signing physician. Leora Uribe nurse practitioner acting as scribe for signing physician. <Nils Snell - Last Filed: 11/13/17 15:01> Objective - Vital Signs Vital signs: Vital Signs Temp 98.4 F 11/13/17 14:41 Pulse 91 11/13/17 14:41 Resp 16 11/13/17 14:41 BP 127/82 11/13/17 14:41 Pulse Ox 99 11/13/17 14:41 Intake & Output 11/12/17 11/13/17 11/13/17 18:59 06:59 18:59 Intake Total 1800 900 Balance 1800 900 Weight 97.069 kg Intake: IV 100 Intake, IV Titration 800 800 Amount Dextrose 5%-0.45% NaCl 1, 800 800 000 ml @ 100 mls/hr IV . Q10H TOMY Rx#:[id number] Oral 1000 Other: Voiding Method Toilet Toilet # Voids 1 3 2 - Labs CBC & Chem 7: 11/13/17 06:47 11/13/17 06:47 Labs: Abnormal Lab Results - Last 24 Hours (Table) 11/13/17 Range/Units 06:47 Chloride 108 H (98-107) mmol/L BUN 3 L (7-17) mg/dL Creatinine 0.49 L (0.52-1.04) mg/dL Glucose 103 H (74-99) mg/dL AST 59 H (14-36) U/L ALT 121 H (9-52) U/L Alkaline Phosphatase 154 H (38-126) U/L Albumin 3.3 L (3.5-5.0) g/dL Assessment and Plan Assessment: As above. See separate dictation. (1) Gallstone pancreatitis Current Visit: Yes Status: Acute Code(s): K85.10 - BILIARY ACUTE PANCREATITIS WITHOUT NECROSIS OR INFECTION SNOMED Code(s): 94864851
[2017-11-13] MEDS ORDERED: IV FLUID CONTINUATION 1,000 ML IV ONE (14:36)
[2017-11-13] MEDS ORDERED: FAMOTIDINE 20 MG/2 ML VIAL IVP ONE (14:57)
[2017-11-13] MEDS ORDERED: HEPARIN SODIUM,PORCINE 5,000 UNIT/ML 1 ML VIAL SQ ONE (14:57)
[2017-11-13] MEDS ORDERED: BUPIVACAINE (PF) 0.25% 30 ML VIAL SQ ONE ×2 (14:59)
--- NOTE | 2017-11-13 15:01 | P.PN ---
Progress Note - Text Progress Note Date: 11/13/17 Patient's liver enzymes have improved today. Her pain remains minimal. She was seen by obstetrics. The options of laparoscopic cholecystectomy being done during this hospitalization or at a later date were discussed in detail with the patient and her family. The patient has a high risk of recurrent gallstone pancreatitis if close cystectomy is not performed. It is our opinion along with gastroenterology and obstetrics that the best course of action is to proceed with laparoscopic cholecystectomy during this admission. The patient's pain and liver enzymes have dramatically improved. The likelihood of retained common bile duct stone is low at this point. Risks of the procedure were noted to include but not limited to bleeding, infection, bowel injury, uterus injury, bile leak, bile duct injury, retained common bile duct stone, conversion to an open procedure, complications of the . Patient understands and wishes to proceed.
[2017-11-13] MEDS ORDERED: NEOSTIGMINE 1 MG/ML 10 ML VIAL ONE (15:03)
[2017-11-13] MEDS ORDERED: GLYCOPYRROLATE 0.2 MG/ML 2 ML VIAL ONE (15:03)
[2017-11-13] MEDS ORDERED: HYDROmorphone (PF) 1 MG/ML ONE (15:03)
[2017-11-13] MEDS ORDERED: SUCCINYLCHOLINE CHLORIDE 100 MG/5 ML SYR IV ONE (15:03)
[2017-11-13] MEDS ORDERED: PROPOFOL 10 MG/ML 20 ML VIAL IV ONE (15:03)
[2017-11-13] MEDS ORDERED: LACTATED RINGERS 1,000 ML IV ONE (15:03)
[2017-11-13] MEDS ORDERED: fentaNYL (PF) 50 MCG/ML 2 ML AMP ONE (15:03)
[2017-11-13] MEDS ORDERED: ROCURONIUM BROMIDE 10 MG/ML 10 ML VIAL IV ONE (15:03)
[2017-11-13] MEDS ORDERED: LIDOCAINE 1% INJ 10MG/ML (20 ML MDV) ONE (15:03)
[2017-11-13] MEDS ORDERED: SODIUM CHLORIDE 0.9% 50 ML with ceFAZolin 2,000 MG IV ONE ×2 (15:16)
[2017-11-13] MEDS ORDERED: METOCLOPRAMIDE 5 MG/ML 2 ML VIAL IVP ONE (16:30)
[2017-11-13] MEDS ORDERED: Acetaminophen-Codeine 300-30mg TAB PO PRN (17:03)
--- NOTE | 2017-11-13 17:04 | P.OP ---
Date of Procedure: 11/13/17 Procedure(s) Performed: PREOPERATIVE DIAGNOSIS: Gallstone pancreatitis POSTOPERATIVE DIAGNOSIS: Same PROCEDURE: Laparoscopic cholecystectomy SURGEON: Alis EBL: Minimal see anesthesia record ANESTHESIA: Gen. COMPLICATIONS: None OPERATIVE PROCEDURE: The patient was brought and placed on the operating room table in the supine position. The patient was placed under general anesthesia at that time. The abdomen was prepped and draped in the usual sterile fashion. A small vertical supraumbilical incision was made. The fascia was grasped with the Richi forceps. The fascia was retracted anteriorly. The Veress needle was advanced into the peritoneal cavity. The saline drop test was normal. Insufflation took place up to 15 mmHg. A 5 mm optical trocar was advanced and the peritoneal cavity. 2 additional 5 mm trochars were placed in the right upper quadrant under direct visualization. A 10 mm trocar was advanced into the epigastric incision site. The gallbladder was retracted superiorly and laterally. The peritoneum overlying the infundibulum was bluntly dissected. The patient's cystic duct was visualized. The junction between the cystic duct common and hepatic duct was identified. The cystic duct was then divided after placement of 3 10 mm clips on the patient's side and one on the specimen side. The cystic artery was identified and clipped as well. A small vessel was seen along the gallbladder fossa and clipped as well. The gallbladder was then removed from the liver bed using electrocautery. The gallbladder was then removed from the epigastric trocar site with an Endo Catch bag. The gallbladder fossa was irrigated with saline. There was no evidence of any bleeding or biliary drainage seen. The trochars were then removed. The fascia at the 10 millimeter site was closed using a Angel- Eamon 0 Vicryl stitch. The skin at all 4 sites was closed using a 4-0 Monocryl stitch. At the end of this procedure the sponge and needle counts were correct. DISPOSITION: Stable to the recovery room
--- NOTE | 2017-11-13 18:24 | US ---
EXAMINATION TYPE: US OB limited DATE OF EXAM: 11/13/2017 COMPARISON: 11/10/2017 CLINICAL HISTORY: ASSESS HEART TONES. Patient in OR recovery from cholecystectomy, assess heart tones EXAM PERFORMED: OBTA GESTATIONAL AGE / DATING Physician Established: (11 weeks/0 days) EDC: 06/04/2018 No growth performed on today?s study per ordering physician SURVEY HEART RATE: 150 bpm RHYTHM: Normal IMPRESSION: This limited exam shows a living fetus with heart rate of 150. I see no comping process. There is no adverse change compared to last exam.
[2017-11-14] MEDS: DEXTROSE 5%-0.45% NACL 1,000 ML IV SCH (05:37)
[2017-11-14 06:50] LABS: ALT 87 U/L (9-52); AST 37 U/L (14-36); Albumin 3.1 g/dL (3.5-5.0); Alkaline Phosphatase 136 U/L (38-126); Anion Gap 6 mmol/L; Blood Urea Nitrogen 3 mg/dL (7-17); Calcium 8.8 mg/dL (8.4-10.2); Carbon Dioxide 23 mmol/L (22-30); Chloride 107 mmol/L (98-107); Glucose 120 mg/dL (74-99); Lipase 48 U/L (23-300); Potassium 3.6 mmol/L (3.5-5.1); Sodium 136 mmol/L (137-145); Total Bilirubin 0.3 mg/dL (0.2-1.3); Total Protein 6.2 g/dL (6.3-8.2)
[2017-11-14 07:14] LABS: Basophils % (A) 0 %; Eosinophils % (A) 0 %; HCT 34.3 % (34.0-46.0); HGB 11.3 gm/dL (11.4-16.0); Lymphocytes % (A) 11 %; MCH 29.5 pg (25.0-35.0); MCV 89.3 fL (80.0-100.0); Monocytes # (A) 0.3 k/uL (0-1.0); Monocytes % (A) 3 %; Neutrophils # (A) 7.9 k/uL (1.3-7.7); Neutrophils % (A) 85 %; Platelet Count 175 k/uL (150-450); RBC 3.84 m/uL (3.80-5.40); RDW 12.8 % (11.5-15.5); WBC 9.3 k/uL (3.8-10.6)
[2017-11-14] MEDS ORDERED: ACETAMINOPHEN TAB 325 MG TAB PO PRN (08:37)
--- NOTE | 2017-11-14 08:45 | P.PN ---
<Leora Uribe - Last Filed: 11/14/17 08:40> Subjective Progress Note Date: 11/14/17 32-year-old female seen and examined at bedside. Sitting up taking a diet. Reports no nausea vomiting states passing gas no stool up ambulating in the [place] yesterday evening Postop November 13 laparoscopic cholecystectomy for gallstone pancreatitis. Lipase down to 48 Objective - Vital Signs Vital signs: Vital Signs Temp 98 F 11/14/17 02:29 Pulse 77 11/14/17 02:29 Resp 17 11/14/17 02:29 BP 106/69 11/14/17 02:29 Pulse Ox 99 11/14/17 02:29 Intake & Output 11/13/17 11/14/17 11/14/17 18:59 06:59 18:59 Intake Total 1300 1500 Output Total 20 Balance 1280 1500 Weight 97.069 kg Intake: IV 500 Intake, IV Titration 800 1150 Amount Dextrose 5%-0.45% NaCl 1, 800 1150 000 ml @ 100 mls/hr IV . Q10H TOMY Rx#:[id number] Oral 350 Output: Emesis 15 Estimated Blood Loss 5 Other: Voiding Method Toilet Toilet # Voids 2 2 - Exam Physical exam 32-year-old female resting in bed taking a diet no acute distress Lungs essentially clear adequate air movement on room air Heart S1-S2 audible regular Abdomen surgical site no redness no drainage Steri-Strips in place soft not distended surgical tenderness appropriate no nausea no vomiting states passing gas no stool Extremities no edema noted - Labs CBC & Chem 7: 11/14/17 06:14 11/14/17 06:14 Labs: Abnormal Lab Results - Last 24 Hours (Table) 11/14/17 11/14/17 Range/Units 06:14 06:14 Hgb 11.3 L (11.4-16.0) gm/dL Neutrophils # 7.9 H (1.3-7.7) k/uL Sodium 136 L (137-145) mmol/L BUN 3 L (7-17) mg/dL Creatinine 0.50 L (0.52-1.04) mg/dL Glucose 120 H (74-99) mg/dL AST 37 H (14-36) U/L ALT 87 H (9-52) U/L Alkaline Phosphatase 136 H (38-126) U/L Total Protein 6.2 L (6.3-8.2) g/dL Albumin 3.1 L (3.5-5.0) g/dL Assessment and Plan Assessment: Impression Present on admission epigastric pain likely due to gallstone pancreatitis Present on admission unspecified abdominal pain Present on admission cholelithiasis IUP estimated 11 weeks Postop November 13 laparoscopic cholecystectomy for gallstone pancreatitis Chronic constipation Plan IV fluid hydration Appreciate and will Continue recommendations by OUTSIDE SALES PROFESSIONAL Further surgical recommendations pending Pain control Prepped for probable discharge Stool softeners as ordered The above impression and plan of care have been discussed and directed by signing physician. Leora Uribe nurse practitioner acting as scribe for signing physician. <Nils Snell - Last Filed: 11/14/17 13:09> Objective - Vital Signs Vital signs: Vital Signs Temp 98.2 F 11/14/17 07:00 Pulse 96 11/14/17 07:00 Resp 12 11/14/17 07:00 BP 97/64 11/14/17 07:00 Pulse Ox 100 11/14/17 07:00 Intake & Output 11/13/17 11/14/17 11/14/17 18:59 06:59 18:59 Intake Total 1300 1500 Output Total 20 Balance 1280 1500 Weight 97.069 kg Intake: IV 500 Intake, IV Titration 800 1150 Amount Dextrose 5%-0.45% NaCl 1, 800 1150 000 ml @ 100 mls/hr IV . Q10H TOMY Rx#:[id number] Oral 350 Output: Emesis 15 Estimated Blood Loss 5 Other: Voiding Method Toilet Toilet Toilet # Voids 2 2 - Labs CBC & Chem 7: 11/14/17 06:14 11/14/17 06:14 Labs: Abnormal Lab Results - Last 24 Hours (Table) 11/14/17 11/14/17 Range/Units 06:14 06:14 Hgb 11.3 L (11.4-16.0) gm/dL Neutrophils # 7.9 H (1.3-7.7) k/uL Sodium 136 L (137-145) mmol/L BUN 3 L (7-17) mg/dL Creatinine 0.50 L (0.52-1.04) mg/dL Glucose 120 H (74-99) mg/dL AST 37 H (14-36) U/L ALT 87 H (9-52) U/L Alkaline Phosphatase 136 H (38-126) U/L Total Protein 6.2 L (6.3-8.2) g/dL Albumin 3.1 L (3.5-5.0) g/dL Assessment and Plan Assessment: As above. Patient doing well today. Pain is improved. Tolerating diet. Postoperative obstetric ultrasound stable. Possible discharge later today. (1) Gallstone pancreatitis Current Visit: Yes Status: Acute Code(s): K85.10 - BILIARY ACUTE PANCREATITIS WITHOUT NECROSIS OR INFECTION SNOMED Code(s): 21381383
[2017-11-14] MEDS ORDERED: DOCUSATE 100 MG CAP PO SCH (09:00)
[2017-11-14 09:34] VITALS: BP 97/64; PULSE 96; RESP 12; TEMP 98.2
[2017-11-14 12:11] LABS: Hepatitis C IgG Antibody Non-Reactive (Non-Reactive)
--- NOTE | 2017-11-14 12:56 | P.PN ---
Subjective Progress Note Date: 11/14/17 Principal diagnosis: IUP @ 11 0/7 weeks, cholelithiasis, gallstone pancreatitis Patient is postop day 1 status post laparoscopic cholecystectomy. She states she is feeling well. She tolerated some soft food this morning without nausea or vomiting. She denies fever or chills. She denies any vaginal bleeding. Objective - Vital Signs Vital signs: Vital Signs Temp 98.2 F 11/14/17 07:00 Pulse 96 11/14/17 07:00 Resp 12 11/14/17 07:00 BP 97/64 11/14/17 07:00 Pulse Ox 100 11/14/17 07:00 Intake & Output 11/13/17 11/14/17 11/14/17 18:59 06:59 18:59 Intake Total 1300 1500 Output Total 20 Balance 1280 1500 Weight 97.069 kg Intake: IV 500 Intake, IV Titration 800 1150 Amount Dextrose 5%-0.45% NaCl 1, 800 1150 000 ml @ 100 mls/hr IV . Q10H TOMY Rx#:[id number] Oral 350 Output: Emesis 15 Estimated Blood Loss 5 Other: Voiding Method Toilet Toilet Toilet # Voids 2 2 - Constitutional General appearance: Present: cooperative, no acute distress - Gastrointestinal Gastrointestinal Comment(s): Soft with minimal tenderness to palpation - Psychiatric Psychiatric: Present: A&O x's 3, appropriate affect - Labs CBC & Chem 7: 11/14/17 06:14 11/14/17 06:14 Labs: Abnormal Lab Results - Last 24 Hours (Table) 11/14/17 11/14/17 Range/Units 06:14 06:14 Hgb 11.3 L (11.4-16.0) gm/dL Neutrophils # 7.9 H (1.3-7.7) k/uL Sodium 136 L (137-145) mmol/L BUN 3 L (7-17) mg/dL Creatinine 0.50 L (0.52-1.04) mg/dL Glucose 120 H (74-99) mg/dL AST 37 H (14-36) U/L ALT 87 H (9-52) U/L Alkaline Phosphatase 136 H (38-126) U/L Total Protein 6.2 L (6.3-8.2) g/dL Albumin 3.1 L (3.5-5.0) g/dL Assessment and Plan (1) Gallstone pancreatitis Current Visit: Yes Status: Acute Code(s): K85.10 - BILIARY ACUTE PANCREATITIS WITHOUT NECROSIS OR INFECTION SNOMED Code(s): 99703832 (2) Abdominal pain Current Visit: No Status: Acute Code(s): R10.9 - UNSPECIFIED ABDOMINAL PAIN SNOMED Code(s): 56902192 (3) Cholelithiasis Current Visit: No Status: Acute Code(s): K80.20 - CALCULUS OF GALLBLADDER W/ O CHOLECYSTITIS W/O OBSTRUCTION SNOMED Code(s): 017540007 (4) Narrative/Plan: Given how well she is doing currently, it is okay with us to discharge home. We will follow up with her as scheduled on November 20 for her new OB visit. Thank you for this consultation Current Visit: No Status: Acute Code(s): Z34.90 - ENCNTR FOR SUPRVSN OF NORMAL , UNSP, UNSP TRIMESTER SNOMED Code(s): 63577896
--- NOTE | 2017-12-05 12:27 | P.DS ---
Providers Date of admission: 11/11/17 20:54 Attending physician: Nils Snell Consults: 11/12/17 12:11 Consult Physician Routine Consulting Provider: Sapna Jackson Consult Reason/Comments: New Do you want consulting provider notified?: Yes Primary care physician: Luke Song - Discharge Diagnosis(es) (1) Gallstone pancreatitis Patient was hospitalized with acute gallstone pancreatitis. The patient was seen by GI and [facility] D[facility] during this hospital stay. She underwent laparoscopic cholecystectomy without incident. Postoperatively her pain was improved. Her diet was gradually advanced. She was discharged home at that point in stable condition with plans for outpatient follow-up in 1 week. Status: Acute Patient Condition at Discharge: Stable Plan - Discharge Summary New Discharge Prescriptions: New Acetaminophen-Codeine 300-30mg [Tylenol #3] 1 tab PO Q4H PRN #30 tablet PRN Reason: Mild Discomfort No Action Pnv No.95/Ferrous Fum/Folic AC [ Multivitamin Tablet] 1 tab PO DAILY Omeprazole 20 mg PO DAILY Docusate [Colace] 100 mg PO DAILY PRN PRN Reason: Constipation Calcium Carbonate [Tums] 500 mg PO TID PRN PRN Reason: Heartburn Famotidine [Pepcid] 20 mg PO BID Acetaminophen [Tylenol Extra Strength] 1,000 mg PO Q6H PRN PRN Reason: Pain Discharge Medication List Docusate [Colace] 100 mg PO DAILY PRN 11/10/17 [History] Omeprazole 20 mg PO DAILY 11/10/17 [History] Pnv No.95/Ferrous Fum/Folic AC [ Multivitamin Tablet] 1 tab PO DAILY 10/16 [History] Acetaminophen [Tylenol Extra Strength] 1,000 mg PO Q6H PRN 11/11/17 [History] Calcium Carbonate [Tums] 500 mg PO TID PRN 11/11/17 [History] Famotidine [Pepcid] 20 mg PO BID 11/11/17 [History] Acetaminophen-Codeine 300-30mg [Tylenol #3] 1 tab PO Q4H PRN #30 tablet [Rx] Follow up Appointment(s)/Referral(s): Nils Snell MD [Medical Doctor] - 11/22/17 3:50 pm Luke Song MD [Primary Care Provider] - 1 Week (Please call your office to make your follow-up appointment) Sapna Jackson MD [STAFF PHYSICIAN] - 11/20/17 3:15 pm Patient Instructions/Handouts: *[facility] - Laparoscopic Cholecystectomy Discharge Instructions, Low Fat Diet (DC) Discharge Disposition: HOME SELF-CARE
== END 2017-11-14 16:10 | disposition home or self-care (01) | DRG 781 ==
LOC: EC 17:29 → 3SUR 20:54
PROVIDERS: ADMIT Surgery; ATTEND Surgery
PROC: 0FT44ZZ Resection of Gallbladder, Percutaneous Endoscopic Approach (ICD-10-PCS; principal; 2017-11-13 10:00)
DX: O26.611 Liver and biliary tract disorders in pregnancy, first trimester (principal); K85.10 Biliary acute pancreatitis without necrosis or infection; K21.9 Gastro-esophageal reflux disease without esophagitis; O99.611 Diseases of the digestive system complicating pregnancy, first trimester; Z3A.11 11 weeks gestation of pregnancy; Z79.899 Other long term (current) drug therapy
CPT/HCPCS: 36415; 76705; 76801; 76815; 80053; 81003; 81025; 82150; 83605; 83690; 84702; 85025; 85610; 85730; 86701; 86704; 86803; 86850; 86900; 86901; 87340; 88304; 96361; 96374; 99284; 99285

== ENCOUNTER 2018-05-21 17:59 | Inpatient (IN) | payer BC ==
[2018-05-21] MEDS ORDERED: TERBUTALINE 1 MG/ML VIAL SQ PRN (18:27)
[2018-05-21] MEDS ORDERED: CARBOPROST TROMETHAMINE 250 MCG/ML 1 ML AMP IM PRN (18:27)
[2018-05-21] MEDS ORDERED: METHYLERGONOVINE 0.2 MG/ML 1 ML AMP IM PRN (18:27)
[2018-05-21] MEDS ORDERED: LIDOCAINE 1% (PF) 10 MG/ML (30 ML SDV) SQ PRN (18:27)
[2018-05-21] MEDS ORDERED: OXYTOCIN 10 UNIT/ML 1 ML VIAL IM PRN (18:27)
[2018-05-21 18:53] VITALS: BMI 93.7
[2018-05-21 18:54] LABS: Basophils % (A) 0 %; Eosinophils # (A) 0.1 k/uL (0-0.7); Eosinophils % (A) 1 %; HGB 12.6 gm/dL (11.4-16.0); Lymphocytes # (A) 1.1 k/uL (1.0-4.8); Lymphocytes % (A) 9 %; MCH 29.7 pg (25.0-35.0); MCV 87.2 fL (80.0-100.0); Mean Platelet Volume 9.7; Monocytes # (A) 0.5 k/uL (0-1.0); Monocytes % (A) 4 %; Neutrophils % (A) 84 %; Platelet Count 188 k/uL (150-450); RBC 4.25 m/uL (3.80-5.40); RDW 14.7 % (11.5-15.5); WBC 11.8 k/uL (3.8-10.6)
[2018-05-21] MEDS: LACTATED RINGERS 1,000 ML IV SCH (19:08)
[2018-05-21] MEDS ORDERED: SODIUM CHLORIDE 0.9% 100 ML BAG ONE (19:19)
[2018-05-21] MEDS ORDERED: ROPIVACAINE 5MG/ML 20ML VIAL ONE (19:19)
[2018-05-21] MEDS ORDERED: fentaNYL (PF) 50 MCG/ML 5 ML AMP ONE (19:19)
--- NOTE | 2018-05-21 20:40 | P.HPOB ---
History of Present Illness H&P Date: 05/21/18 Chief Complaint: 38-0/7 weeks, early labor The patient is a 33-year-old 1 para 0 admitted at 38-0/7 weeks as established by last menstrual period and confirmed by second trimester ultrasound. She is admitted in early labor having changed her cervix from an earlier presentation today, all signs are reassuring. Her has been uncomplicated and group B strep status is negative. Obstetrical history 1 para 0 with current statistics listed in history of present illness. EDC of 06/04/2018 was established by last menstrual period and confirmed by 19 week ultrasound. Laboratory workup demonstrates a blood type of O+ with a negative antibody screen. Rubella status is immune. The remainder of the laboratory workup was within normal limits. Early Glucola was negative while second trimester Glucola was elevated followed by a normal three-hour glucose tolerance test. Group B strep status is negative. Gynecologic history: Unremarkable with no history of any infections to include STDs. Review of Systems Review of systems is confined to history of present illness. Past Medical History Past Medical History: GERD/Reflux History of Any Multi-Drug Resistant Organisms: None Reported Past Surgical History: No Surgical Hx Reported Past Anesthesia/Blood Transfusion Reactions: No Reported Reaction Past Psychological History: No Psychological Hx Reported Smoking Status: Never smoker Past Alcohol Use History: None Reported Past Drug Use History: None Reported - Past Family History Father Family Medical History: No Reported History Medications and Allergies Home Medications Medication Instructions Recorded Confirmed Type Pnv No.95/Ferrous Fum/Folic AC 1 tab PO DAILY 11/10/17 05/21/18 History [ Multivitamin Tablet] Calcium Carbonate [Tums] 500 mg PO TID PRN 11/11/17 05/21/18 History Famotidine [Pepcid] 20 mg PO BID 11/11/17 05/21/18 History Allergies Allergy/AdvReac Type Severity Reaction Status Date / Time No Known Allergies Allergy Verified 11/13/17 14:35 Exam Vital Signs Temp Pulse Resp BP Pulse Ox 05/21/18 18:26 97.5 F L 101 H 18 98 05/21/18 18:15 97.5 F L 101 H 16 145/80 98 Intake and Output 05/21/18 05/21/18 05/21/18 06:59 14:59 22:59 Other: Weight 240 kg In general, this is a well-developed, well-nourished white female in no acute distress. Her heart has a regular rhythm and rate without murmur. Her lungs are clear to auscultation bilaterally in all bernardo. Her abdomen is gravid, nondistended, has normal active bowel sounds, is soft, nontender, and without any palpable masses aside from uterine fundus. Her extremities are without any cyanosis, clubbing, or significant edema and are nontender to palpation bilaterally. Digital cervical examination demonstrates her cervix to approximate 6 cm dilated, 90% effaced, with the vertex in presentation at -1-2 station. Artificial rupture of membranes is carried out demonstrating clear fluid. Results Result Diagrams: 05/21/18 18:44 Abnormal Lab Results - Last 24 Hours (Table) 05/21/18 Range/Units 18:44 WBC 11.8 H (3.8-10.6) k/uL Neutrophils # 10.0 H (1.3-7.7) k/uL Assessment and Plan (1) Active labor at term Current Visit: No Status: Acute Code(s): PDA0997 - SNOMED Code(s): 48076464 Plan: The patient is admitted for active management of labor. She will have close maternal and surveillance and expectant management will be practiced. An epidural catheter has been placed for analgesia. Should there be no significant progress over the next hour or so, Pitocin augmentation will be added.
[2018-05-21] MEDS ORDERED: ZOLPIDEM 5 MG TAB PO PRN (23:27)
[2018-05-21] MEDS ORDERED: diphenhydrAMINE 50 MG/ML 1 ML VIAL IVP PRN ×2 (23:27)
[2018-05-21] MEDS ORDERED: LANOLIN CREAM 5 GM TUBE TOPICAL PRN (23:27)
[2018-05-21] MEDS ORDERED: WITCH HAZEL 1 EACH MED..PAD TOPICAL PRN (23:27)
[2018-05-21] MEDS ORDERED: diphenhydrAMINE 50 MG CAP PO PRN (23:27)
[2018-05-21] MEDS ORDERED: SIMETHICONE 80 MG CHEWABLE PO PRN (23:27)
[2018-05-21] MEDS ORDERED: ACETAMINOPHEN TAB 325 MG TAB PO PRN (23:27)
[2018-05-21] MEDS ORDERED: diphenhydrAMINE 25 MG CAP PO PRN (23:27)
[2018-05-21] MEDS ORDERED: HYDROcodone/APAP 5-325MG 1 EACH TAB PO PRN (23:27)
[2018-05-21] MEDS ORDERED: BENZOCAINE/MENTHOL SPRAY 1 GM/SPRAY AEROSOL TOPICAL PRN (23:27)
[2018-05-21] MEDS ORDERED: HYDROCORTISONE 2.5% RECTAL CREAM 30 GM TUBE RECTAL PRN (23:27)
[2018-05-21] MEDS ORDERED: OXYTOCIN 20 UNITS/1000 ML NS 1,000 ML IV SCH (23:30)
--- NOTE | 2018-05-21 23:31 | P.PROBDLV ---
Vaginal Delivery Note - . Vaginal Delivery Note: The patient is a 33-year-old 1 para 0 admitted at 38-0/7 weeks by good dating parameters perches admitted in early labor with all signs reassuring. Her has been uncomplicated and group B strep status is negative. On labor and delivery, she had an epidural catheter placed at the onset of the active phase of labor. She then underwent artificial rupture of membranes demonstrating clear fluid and made fairly rapid progress through the active phase of labor to complete and +2 station. She pushed over the course of approximately 4 contractions to a normal spontaneous vaginal delivery of a viable 7 lbs. 15 oz. baby girl with Apgars of 8 at 1 minute and 9 at 5 minutes delivered in the right occiput anterior position. The placenta was delivered spontaneously, intact, and grossly normal with a grossly normal, centrally inserted three-vessel cord. A second-degree midline perineal laceration was noted and repaired in standard fashion using 3-0 chromic catgut without difficulty. Estimated blood loss for the case was approximately 150 mL. There were no complications. All sponge, instrument, and needle counts were correct. Both mother and infant are resting comfortably in recovery.
[2018-05-22] MEDS: SENNOSIDES-DOCUSATE SODIUM 1 EACH TAB PO SCH ×2 (07:39→19:45)
[2018-05-22] MEDS: IBUPROFEN 600 MG TAB PO PRN ×3 (07:39→19:44)
[2018-05-22] MEDS: LACTATED RINGERS 1,000 ML IV SCH (11:12)
[2018-05-23 00:54] VITALS: RESP 16
--- NOTE | 2018-05-23 07:12 | P.DS ---
Providers Date of admission: 05/21/18 18:10 Expected date of discharge: 05/23/18 Attending physician: Sapna Jackson Primary care physician: Stated None Hospital Course: This is a 33-year-old white female 1 para 0 who presented to labor and delivery in active labor at 38 weeks gestation. Patient's was unremarkable, blood type O+, rubella status immune, group B strep cultures negative. Please see admitting history and physical for details. Rupture membranes was clear and spontaneous. Patient progressed well through labor went on to deliver a liveborn female with scores of 8 and 9 at one and 5 minutes respectively. Infant weighed 3610 g or 7 lbs. 15 oz. She did well, a small spontaneous laceration was easily repaired. Please see dictated delivery note for details. This morning the patient is doing well. She is voiding, ambulating, passing flatus without difficulty. Vital signs are stable and she is afebrile. Fundus is firm and in the midline, symmetric and 18 week size. Extremities are negative for edema. Chest is clear in all bernardo. is doing well. Patient is breast-feeding. She is being discharged home today in good condition. She will follow-up in the office with me in 6 weeks. I have reminded her no intercourse, tampons or douching. She will use [id number] ibuprofen products as needed for pain, 200 mg pills, 3 every 6 hours as needed. She will continue taking her vitamin daily. I have given her prescription for breast pump to use as needed for breast-feeding assistance. We have discussed different options for contraception and we'll discuss this further in the office. Patient Condition at Discharge: Good Plan - Discharge Summary Discharge Rx Participant: No New Discharge Prescriptions: No Action Pnv No.95/Ferrous Fum/Folic AC [ Multivitamin Tablet] 1 tab PO DAILY Calcium Carbonate [Tums] 500 mg PO TID PRN PRN Reason: Heartburn Famotidine [Pepcid] 20 mg PO BID Discharge Medication List Pnv No.95/Ferrous Fum/Folic AC [ Multivitamin Tablet] 1 tab PO DAILY 10/16 [History] Calcium Carbonate [Tums] 500 mg PO TID PRN 11/11/17 [History] Famotidine [Pepcid] 20 mg PO BID 11/11/17 [History] Follow up Appointment(s)/Referral(s): Sapna Jackson MD [STAFF PHYSICIAN] - 6 Weeks
[2018-05-23] MEDS: SENNOSIDES-DOCUSATE SODIUM 1 EACH TAB PO SCH (09:21)
[2018-05-23] MEDS: IBUPROFEN 600 MG TAB PO PRN (09:21)
[2018-05-23 10:23] VITALS: BP 106/68; PULSE 80; TEMP 98.2
== END 2018-05-23 13:30 | disposition home or self-care (01) | DRG 775 ==
LOC: FBPOP 17:59 → 4FBP 18:10
PROVIDERS: ADMIT Obstetrics & Gynecology; ATTEND Obstetrics & Gynecology
PROC: 10E0XZZ Delivery of Products of Conception, External Approach (ICD-10-PCS; principal; 2018-05-21)
PROC: 0KQM0ZZ Repair Perineum Muscle, Open Approach (ICD-10-PCS; 2018-05-21)
PROC: 00HU33Z Insertion of Infusion Device into Spinal Canal, Percutaneous Approach (ICD-10-PCS; 2018-05-21)
PROC: 3E0R3BZ Introduction of Anesthetic Agent into Spinal Canal, Percutaneous Approach (ICD-10-PCS; 2018-05-21)
DX: O70.1 Second degree perineal laceration during delivery (principal); Z37.0 Single live birth; Z3A.38 38 weeks gestation of pregnancy; O99.62 Diseases of the digestive system complicating childbirth; K21.9 Gastro-esophageal reflux disease without esophagitis; Z79.899 Other long term (current) drug therapy
CPT/HCPCS: 85025; 99213

== ENCOUNTER → 2018-05-21 | Outpatient (CLI) | payer BC ==
[2018-05-21 08:00] VITALS: BP 119/81; PULSE 90; RESP 16; TEMP 97.4
--- NOTE | 2018-05-29 12:46 | P.MSEPDOC ---
Presenting Problems - Arrival Data Date of Arrival on Unit: 05/21/18 Time of Arrival on Unit: 07:34 Mode of Transport: Wheelchair - Complaint OB-Reason for Admission/Chief Complaint: Possible Onset of Labor Comment: 599 Medical History - Information : 1 Para: 0 Term: 0 : 0 Abortions: Spontaneous or Elective: 0 Number of Living Children: 0 - Gestational Age Gestational Age by CA (wks/days): 38 Weeks and 0 Days Review of Systems - Review of Systems Constitutional: No problems Breast: No problems ENT: No problems Cardiovascular: No problems Respiratory: No problems Gastrointestinal: No problems Genitourinary: No problems Musculoskeletal: No problems Neurological: No problems Skin: No problems Vital Signs - Temperature Temperature: 97.4 F Temperature Source: Temporal Artery Scan - Pulse Pulse Oximetery Pulse Rate: 90 Pulse Assessment Method: Pulse Oximetry - Respirations Respiratory Rate: 16 Oxygen Delivery Method: Room Air O2 Sat by Pulse Oximetry: 96 - Blood Pressure Right Arm Sitting Blood Pressure: 119/81 Blood Pressure Mean: 93 Blood Pressure Source: Automatic Cuff Medical Screen Scoring (Pre) - Cervical Exam Dilation: 1-3 cm = 1 Effacement: Exam Deferred Membranes: Intact - Uterine Contractions Frequency: > or = 36 weeks =2 Duration: N/A Intensity: N/A - Maternal Vital Signs Maternal Temperature: N/A Maternal Blood Pressure: N/A Signs of Preeclampsia: N/A Maternal Respirations: N/A - Pain Assessment Pain Location and Character: Abdomen Pain Scale Used: Numeric (1 - 10) Pain Intensity: 8 Pain Description: *Acute Pain Frequency: Intermittent Pain Duration Units: Hours Pain Behavior: Vocalization Pain Aggravating Factors: Activity, Position Pharmacological Interventions: PRN Medication Non-Pharmacological Interventions: Reduce Environmental Stimuli, Relaxation Technique - Maternal Trauma Maternal Trauma: N/A - Assessment Baseline FHR: 130 Heart Rate - NICHD Category: Category I (Normal) = 0 NST: Reactive Position: N/A Station: N/A - Total Score Total Score (Pre): 3 - Level of Risk Level of Risk: Low (0-5) Medical Screen Scoring (Post) - Cervical Exam Dilation: 1-3 cm = 1 Membranes: Intact - Uterine Contractions Frequency: > or = 36 weeks =2 - Maternal Vital Signs Maternal Temperature: N/A Maternal Blood Pressure: N/A Signs of Preeclampsia: N/A Maternal Respirations: N/A - Total Score Total Score (Post): 3 - Post Treatment Level of Risk Post Treatment Level of Risk: Low (0-5) Physician Notification (Post) - Physician Notified Physician Notified Date: 05/21/18 Physician Notified Time: 08:10 Physician/Practitioner Notified:: Dr Jackson New Order Received: Yes - Notification Comment Comment: may dc pt home if no further cervical change per v.o. Dr Jackson Disposition - Disposition OB Disposition: Discharge to home, Written follow up instructions reviewed Discharge Date: 05/21/18 Discharge Time: 09:45 I agree with the RN Medical Screening Exam: Yes Risk & Benefit of care provided described in d/c instruction: Yes Diagnosis: FALSE LABOR AT OR AFTER 37 COMPLETED WEEKS OF GESTATION
== END | disposition home or self-care (01) ==
LOC: FBPOP 07:31
PROVIDERS: ATTEND Obstetrics & Gynecology
DX: O47.1 False labor at or after 37 completed weeks of gestation (principal); Z3A.38 38 weeks gestation of pregnancy
CPT/HCPCS: 59025; 99213

== ENCOUNTER → 2022-08-18 | Outpatient (CLI) | payer BC ==
--- NOTE | 2022-08-18 11:00 | FL ---
EXAMINATION TYPE: FL barium swallow DATE OF EXAM: 08/18/2022 CLINICAL HISTORY: Dysphasia and GERD. Patient on and off reflux medications. Negative oral pharyngeal evaluation by ENT TECHNIQUE: A double contrast esophagram is performed utilizing air and barium. A total of 18 second s of fluoroscopic time was utilized during procedure and 42 images obtained COMPARISON: None FINDINGS: The esophagus shows normal motility and emptying into the stomach. No proximal diverticulu m. No evidence of fixed hiatal hernia or stricture noted. No significant gastroesophageal reflux was seen during real time performance of this study. Cholecystectomy clips incidentally noted. IMPRESSION: No significant abnormality is seen to account for patient's symptoms.
== END | disposition home or self-care (01) ==
LOC: RADUSWWP 09:45
PROVIDERS: ATTEND Otolaryngology
DX: R13.10 Dysphagia, unspecified (principal)
CPT/HCPCS: 74220

== ENCOUNTER → 2024-01-10 | Outpatient (CLI) | payer OTHER ==
[2024-01-10 17:28] LABS: Anisocytosis (M) 2+; Basophils # (A) 0.09 X 10*3/uL (0.00-0.10); Basophils % (A) 1.5 %; Elliptocytes 2+; Eosinophils # (A) 0.13 X 10*3/uL (0.04-0.35); Eosinophils % (A) 2.1 %; HCT 33.8 % (37.2-46.3); HGB 9.6 g/dL (12.0-15.0); Hypochromasia (M) 2+; Lymphocytes # (A) 1.76 X 10*3/uL (0.90-5.00); Lymphocytes % (A) 28.8 %; MCH 21.9 pg (27.0-32.0); MCHC 28.4 g/dL (32.0-37.0); Monocytes # (A) 0.41 X 10*3/uL (0.20-1.00); Monocytes % (A) 6.7 %; NRBC Per 100 WBC 0 X 10*3/uL (0.00-0.01); Neutrophils # (A) 3.71 X 10*3/uL (1.80-7.70); Neutrophils % (A) 60.6 %; Platelet Count 224 X 10*3/uL (140-440); RBC 4.39 X 10*6/uL (4.10-5.20); RDW 31.3 % (11.5-14.5); Schistocytes 2+; WBC 6.12 X 10*3/uL (4.50-10.00)
== END | disposition home or self-care (01) ==
LOC: LABWHC1 10:40
PROVIDERS: ATTEND Obstetrics & Gynecology
DX: Z01.812 Encounter for preprocedural laboratory examination (principal); N92.1 Excessive and frequent menstruation with irregular cycle
CPT/HCPCS: 36415; 85025